=== PATIENT | female | born 1965 | race Caucasian/White ===

== ENCOUNTER 2022-10-19 09:12 | Day surgery (SDC) | payer OTHER, MEDICAID, SELFPAY ==
[2022-10-15 12:55] VITALS: BMI 24.1
[2022-10-19] VITALS (7 sets, daily range): BP systolic 102–125; BP diastolic 53–62; PULSE 86–104; RESP 12–15; TEMP 36.1–36.9; O2SAT 93–100; BMI 22.2
--- NOTE | 2022-10-19 07:34 | P.HP_ITS ---
History of Present Illness History of Present Illness Chief complaint: Left foot pain Narrative: 56 year old female reports painful left foot. Patient would like surgery for her left tailor's bunion. Patient had the right side corrected about 10 years ago. Patient started to have severe discomfort in the last 7-9 months, and the area had became more swollen. The pain is present at rest but worsens with ambulation. [facility] Medical History (Updated 10/14/22 @ 07:45 by Duncan Redd RN) Bunion of left foot Social History household members: spouse Smoking Status: Never smoker alcohol intake: current Meds Home Medications and Allergies Home Medications Medication Instructions Recorded Confirmed Type atorvastatin 20 mg tablet 20 mg PO DAILY 10/15/22 10/15/22 History duloxetine 60 mg capsule,delayed 60 mg PO DAILY 10/15/22 10/15/22 History release famotidine 20 mg tablet 20 mg PO BID 10/15/22 10/15/22 History fesoterodine 4 mg tablet,extended 4 mg PO DAILY 10/15/22 10/15/22 History release 24 hr levothyroxine 50 mcg tablet 50 mcg PO DAILY 10/15/22 10/15/22 History lisinopril 2.5 mg tablet 2.5 mg PO DAILY 10/15/22 10/15/22 History metoprolol succinate 25 mg 12.5 mg PO DAILY 10/15/22 10/15/22 History tablet,extended release 24 hr morphine 30 mg tablet,extended 30 mg PO Q12H 10/15/22 10/15/22 History release Allergies Allergy/AdvReac Type Severity Reaction Status Date / Time No Known Drug Allergies Allergy Verified 10/15/22 12:59 Review of Systems Review of Systems Narrative: Negative except in HPI. Exam Narrative Exam Narrative: Left foot: Tone, temperature, and turgor of skin within normal limits. stable cicatrix left lateral leg. NV intact. Severe lateral deviation of met 5 and medial deviation of toe 5. mild hallux abducto valgus, underriding toe 2. Pain on palpation to plantar and lateral distal met 5. Partially compensated forefoot varus. Assessment & Plan Assessment & Plan narrative: Recommended patient to take vitamind D and calcium supplements, clean foot with Hibiclens night before surgery, and obtain cast bag, knee scooter, and other supplies necessary for post-op period. Surgical plan is for left foot tailor's bunion and possible hammertoe correction. Risks and benefits of the procedure discussed with all questions answered to patient's satisfaction. Reviewed potential complications that may include but not limited to the following: DVT, failure to resolve all symptoms, infection, nerve injury, bleeding, recurrence, or wound. Patient elected to proceed with no guarantees made. Patient verbalized understanding and agreed with plan.
[2022-10-19] MEDS: LACTATED RINGERS 1,000 ML 42 ML IV (11:34)
[2022-10-19] MEDS: ACETAMINOPHEN 325 MG TABLET 650 MG PO (11:35)
[2022-10-19] MEDS: FAMOTIDINE 20 MG/2 ML VIAL IV (12:26)
--- NOTE | 2022-10-19 12:29 | SUR.PREOP ---
Patient reported 3-4/10 left foot pain, declined pain medication.
--- NOTE | 2022-10-19 13:31 | SUR.OPER ---
Supine on padded OR bed, head on pillow, arms secured on padded arm boards at <90 degrees abduction, legs uncrossed, safety belt at thigh, tape over blanket over lower legs.
[2022-10-19] MEDS: CEFAZOLIN 2 GM/100 ML PREMIX 100 ML IV (13:55)
[2022-10-19] MEDS: LIDOCAINE 1% 20 ML INJ (14:19)
[2022-10-19] MEDS: BUPIVACAINE 0.25% (PF) VIAL 30 ML INJ (15:28)
--- NOTE | 2022-10-21 07:25 | PM.OP.1 ---
Operative Date/Time/Diagnoses Date of procedure: 10/19/22 Pre-op diagnosis: 1. Left foot bunionette. Procedure & Clinicians Procedure: 1. Left foot bunionette correction with osteotomy. Same procedure as scheduled: Yes Indications: Painful left foot. Surgeon: Neil Hillman Click Yes if Unassisted: No Anesthesia Type: Sedation Operative Notes Findings: Degenerative changes and rigid deformity. Closure Type: primary Prosthetic devices, grafts, tissues, transplants, or devices: 2.0 mm, 12 mm and 14 mm, cannulated headless screws. Estimated Blood Loss (mL): 5 Blood products transfused: none Tourniquet time (min): 75 Procedure in detail: The patient was transported to the operating room and placed on the operating table in the supine position with a safety strap across her lap. Copious amounts of cast padding were placed around the left ankle followed by 18 inch tourniquet. A total of 9 cc of 1% lidocaine plain was injected to the foot, which was then prepped and draped in the usual sterile fashion followed by official timeout with the surgical team all in agreement. The foot was elevated to the operating table and exsanguinated with an Esmarch bandage. The pneumatic ankle tourniquet was inflated to 250 mmHg. The foot was lowered to the operating field. Attention was directed to the tailor's bunion deformity on the left foot. An approximately 6 cm dorsal medial incision was created over the fifth ray. The incision was then deepened with a #15 blade. All vessels encountered were ligated with hemostasis. The skin and subcutaneous tissue were from the capsule medially, which was then sharply reflected off the fifth metatarsal. There was noted to be a prominent bony eminence to the plantar and lateral aspect of fifth metatarsal head, which was sharply removed using sagittal saw. The periosteum was reflected off of fifth metatarsal head and shaft. A sagittal was then used to create a chevron type osteotomy. The capital fragment was freed and translated medially by 3mm. One 2.0 x 12 mm headless and one 2.0 x 14 mm headless screw were inserted over guide-wire using proper fixation technique. Construct was verified on fluoroscopy. Excess bone was shaved off using sagittal saw and bone rasp. The capsule was closed with 3-0 vicryl. The procedure site was then closed in layers using 4-0 vicryl and 3-0 nylon. The foot was cleansed and dried. It was dressed with iodine soaked Xeroform, gauze, Kerlix, ABD pad, and Hugh bandage. The limb was placed in a CAM walker. Post-operative Condition: stable Disposition: same day surgery Plan for aftercare: NWB to the left lower extremity. Keep dressing clean, dry, and intact. Take pain medications and follow-up as directed.
== END 2022-10-19 16:25 | disposition home or self-care (01) ==
PROVIDERS: Referring Provider Podiatrist Foot & Ankle Surgery; Visit Provider Podiatrist Foot & Ankle Surgery
PROC: 0QBP0ZZ Excision of Left Metatarsal, Open Approach (ICD-10-PCS; CPT 28292; principal; 2022-10-19 13:45)
DX: M21.622 Bunionette of left foot (principal)
CPT/HCPCS: 28308; J0690; J1100; J2250; J2405; J2704; J3010

== ENCOUNTER 2023-03-01 05:54 | Day surgery (SDC) | payer OTHER, MEDICAID, SELFPAY ==
[2023-02-23 14:58] VITALS: BMI 24.1
--- NOTE | 2023-02-28 22:34 | PM.HP.1 ---
History of Present Illness History of Present Illness [place] [facility] [place]ative: 57 year [place] female reports for left ankle hardware pain. Patient states the constant irritation from the screws protruding outward against the skin, which is affecting her daily activities and sleep. Patient would like to have them removed at this time. Patient could also feel the row of screws on the outer side of the left leg, but they do not bother her. Patient still has some swelling to the left forefoot. Patient denies recent changes in medical history. Patient denies n/v/f/c/sob/cp. [facility] Medical History (Updated 02/23/23 @ 15:15 by Sherrill Stephen RN) Depression Overactive bladder Orthostatic hypotension HFrEF (heart failure with reduced ejection fraction) Nonrheumatic aortic (valve) insufficiency Cardiomyopathy (2008) Non-Hodgkin lymphoma CURLY on CPAP HLD (hyperlipidemia) Bunion of left foot Surgical History (Updated 02/23/23 @ 15:15 by Sherrill Stephen RN) Hx of tubal ligation History of arthroscopy of knee History of hysterectomy History of lumbar laminectomy History of bunionectomy of right great toe (~2012) History of surgery (10/19/22) Social History household members: spouse Smoking Status: Never smoker alcohol intake: current Meds Home Medications and Allergies Home Medications Medication Instructions Recorded Confirmed Type atorvastatin 20 mg tablet 20 mg PO DAILY 10/15/22 10/19/22 History duloxetine 60 mg capsule,delayed 60 mg PO DAILY 10/15/22 10/19/22 History release famotidine 20 mg tablet 20 mg PO BID 10/15/22 10/19/22 History fesoterodine 4 mg tablet,extended 4 mg PO DAILY 10/15/22 10/19/22 History release 24 hr levothyroxine 50 mcg tablet 50 mcg PO DAILY 10/15/22 10/19/22 History lisinopril 2.5 mg tablet 2.5 mg PO DAILY 10/15/22 10/19/22 History metoprolol succinate 25 mg 12.5 mg PO DAILY 10/15/22 10/19/22 History tablet,extended release 24 hr morphine 30 mg tablet,extended 30 mg PO Q12H 10/15/22 10/19/22 History release Allergies Allergy/AdvReac Type Severity Reaction Status Date / Time codeine AdvReac Nausea/vomi Verified 02/23/23 15:12 ting methocarbamol AdvReac Vomiting Verified 02/23/23 15:12 topiramate AdvReac [place] Verified 02/23/23 15:12 really funny Review of Systems Review of Systems Narrative: Negative except as mentioned in HPI. Exam Skin Other: Palpable hardware to left medial malleolus and along left fibula. Tone, temperature, and turgor of skin within normal limits. Stable cicatrices to left ankle and foot. Extrem Other: Mild pain on palpation to left medial malleolus without guarding. No pain on palpation along left fibula. Assessment & Plan Assessment & Plan narrative: 1. Pain due to internal orthopedic at left ankle (medial malleolus), subsequent encounter. Risks and benefits of the procedure discussed with all questions answered to patient's satisfaction. Reviewed potential complications that may include but not limited to the following: DVT, failure to resolve all symptoms, infection, nerve injury, bleeding, recurrence, or wound. Reviewed aftercare instructions. Patient elected to proceed with no guarantees made. Patient verbalized understanding and agreed with surgical plan for hardware removal of two screws at left medial malleolus.
[2023-03-01] VITALS (8 sets, daily range): BP systolic 101–121; BP diastolic 48–65; PULSE 8–101; RESP 10–28; TEMP 36.6–36.7; O2SAT 97–99; BMI 21.9
--- NOTE | 2023-03-01 | PATH_ITS ---
[facility] Accession Number: [id number] No. of containers..01 Tissue . 01 Material submitted: . ankle - LEFT ANKLE . 01 Clinical history: . FOREIGN BODY . 01 Diagnosis: Left Ankle Foreign Body, Removal: Surgical hardware. Gross description only. MRV 03/03/2023 1816 Local . 01 Electronically signed: . Colby Stephens MD, PhD, Pathologist NPI- [id number] . 01 Gross description: . The specimen is received without fixative, labeled with the patient's name, , and L ankle foreign body, consists of two silver screws, both measuring 3.6 cm in length by 0.3 cm in diameter with round heads and no inscriptions identified. No soft tissue is present. No sections are submitted. The specimen is for gross only evaluation. ([id number]) /MRV 03/02/2023 1255 Local . 01 Pathologist provided ICD-10: T84.84XD . 01 CPT . 302124 Specimen Comment: A courtesy copy of this report has been sent to [facility] Pathology Performed at: 01 [facility] [address] [place] [address], [place], [place] [id number] MD Mikal Das MD Phone: [phone]
--- NOTE | 2023-03-01 | DI.RAD.S_ITS ---
PROCEDURE: XR ANKLE LT MIN 3V INDICATIONS: Post-op, screw removal TECHNIQUE: 3 views of the ankle were acquired. COMPARISON: Left ankle radiographs 02/12/2020. FINDINGS: Bones: Interval removal of medial malleolar partially-threaded screws. Stable positioning of distal fibular fixation using plate and screw construct. Bony alignment is normal. No acute osseous abnormality. Ankle mortise is normally aligned and intact. Soft tissues: No tibiotalar joint effusion. Achilles tendon appears normal. IMPRESSION: Status post interval removal of medial malleolar fixation screws. Stable alignment of distal fibula fixation hardware without evidence of complication. No acute radiographic abnormality. Approved by: Marie Casillas M.D. on 03/01/2023 at 12:27
[2023-03-01] MEDS: LACTATED RINGERS 1,000 ML 100 ML IV (07:12)
--- NOTE | 2023-03-01 07:43 | SUR.PREOP ---
See new order for EKG per Dr Hook
--- NOTE | 2023-03-01 07:49 | P.HP_ITS ---
History of Present Illness History of Present Illness Chief complaint: [facility] [place] Narrative: 57 year old female reports for left ankle hardware pain. Patient states the constant irritation from the screws protruding outward against the skin, which is affecting her daily activities and sleep. Patient would like to have them removed at this time. Patient could also feel the row of screws on the outer side of the left leg, but they do not bother her. Patient still has some swelling to the left forefoot. Patient denies recent changes in medical history. Patient denies n/v/f/c/sob/cp. [facility] Medical History (Updated 02/23/23 @ 15:15 by Sherrill Stephen RN) Depression Overactive bladder Orthostatic hypotension HFrEF (heart failure with reduced ejection fraction) Nonrheumatic aortic (valve) insufficiency Cardiomyopathy (2008) Non-Hodgkin lymphoma CURLY on CPAP HLD (hyperlipidemia) Bunion of left foot Surgical History (Updated 02/23/23 @ 15:15 by Sherrill Stephen RN) Hx of tubal ligation History of arthroscopy of knee History of hysterectomy History of lumbar laminectomy History of bunionectomy of right great toe (~2012) History of surgery (10/19/22) Social History household members: spouse Smoking Status: Never smoker alcohol intake: current Meds Home Medications and Allergies Home Medications Medication Instructions Recorded Confirmed Type atorvastatin 20 mg tablet 20 mg PO DAILY 10/15/22 03/01/23 History duloxetine 60 mg capsule,delayed 60 mg PO DAILY 10/15/22 03/01/23 History release famotidine 20 mg tablet 20 mg PO BID 10/15/22 03/01/23 History fesoterodine 4 mg tablet,extended 4 mg PO DAILY 10/15/22 03/01/23 History release 24 hr levothyroxine 50 mcg tablet 50 mcg PO DAILY 10/15/22 03/01/23 History lisinopril 2.5 mg tablet 2.5 mg PO DAILY 10/15/22 03/01/23 History metoprolol succinate 25 mg 25 mg PO DAILY 10/15/22 03/01/23 History tablet,extended release 24 hr morphine 30 mg tablet,extended 30 mg PO Q12H 10/15/22 03/01/23 History release oxycodone-acetaminophen 5 mg-325 1 tab PO Q6H PRN post-op pain #28 02/28/23 Rx mg tablet (Percocet) tabs Allergies Allergy/AdvReac Type Severity Reaction Status Date / Time methocarbamol AdvReac Vomiting Verified 03/01/23 06:51 topiramate AdvReac [place] Verified 03/01/23 06:51 really funny Exam Vital Signs (past 8 hours): - 03/01/23 07:08 Temperature 97.9 F Pulse Rate 88 Respiratory Rate 17 Blood Pressure 101/59 L Pulse Oximetry 97 Oxygen Delivery Method Room Air Oxygen Delivery Method Room Air
--- NOTE | 2023-03-01 07:50 | P.HP_ITS ---
History of Present Illness History of Present Illness Chief complaint: [facility] [place] Narrative: No changes to H&P entered on 03/10/23. [facility] Medical History (Updated 02/23/23 @ 15:15 by Sherrill Stephen RN) Depression Overactive bladder Orthostatic hypotension HFrEF (heart failure with reduced ejection fraction) Nonrheumatic aortic (valve) insufficiency Cardiomyopathy (2008) Non-Hodgkin lymphoma CURLY on CPAP HLD (hyperlipidemia) Bunion of left foot Surgical History (Updated 02/23/23 @ 15:15 by Sherrill Stephen RN) Hx of tubal ligation History of arthroscopy of knee History of hysterectomy History of lumbar laminectomy History of bunionectomy of right great toe (~2012) History of surgery (10/19/22) Social History household members: spouse Smoking Status: Never smoker alcohol intake: current Meds Home Medications and Allergies Home Medications Medication Instructions Recorded Confirmed Type atorvastatin 20 mg tablet 20 mg PO DAILY 10/15/22 03/01/23 History duloxetine 60 mg capsule,delayed 60 mg PO DAILY 10/15/22 03/01/23 History release famotidine 20 mg tablet 20 mg PO BID 10/15/22 03/01/23 History fesoterodine 4 mg tablet,extended 4 mg PO DAILY 10/15/22 03/01/23 History release 24 hr levothyroxine 50 mcg tablet 50 mcg PO DAILY 10/15/22 03/01/23 History lisinopril 2.5 mg tablet 2.5 mg PO DAILY 10/15/22 03/01/23 History metoprolol succinate 25 mg 25 mg PO DAILY 10/15/22 03/01/23 History tablet,extended release 24 hr morphine 30 mg tablet,extended 30 mg PO Q12H 10/15/22 03/01/23 History release oxycodone-acetaminophen 5 mg-325 1 tab PO Q6H PRN post-op pain #28 02/28/23 Rx mg tablet (Percocet) tabs Allergies Allergy/AdvReac Type Severity Reaction Status Date / Time methocarbamol AdvReac Vom[place] Verified 03/01/23 06:51 topiramate AdvReac [place] Verified 03/01/23 06:51 really funny Exam Vital Signs (past 8 hours): - 03/01/23 07:08 Temperature 97.9 F Pulse Rate 88 Respiratory Rate 17 Blood Pressure 101/59 L Pulse Oximetry 97 Oxygen Delivery Method Room Air Oxygen Delivery Method Room Air
[2023-03-01] MEDS: CEFAZOLIN 2 GM/100 ML PREMIX 100 ML IV (08:16)
--- NOTE | 2023-03-01 08:27 | SUR.OPER ---
Supine on padded OR bed, head on pillow, arms secured on padded arm boards at <90 degrees abduction, legs uncrossed, safety belt at thigh, tape over blanket over non-operative leg, bump at operative thigh, stack of blankets supporting operative leg knee and lower leg.
[2023-03-01] MEDS: LIDOCAINE 1% 20 ML INJ (08:30)
--- NOTE | 2023-03-01 08:38 | SUR.OPER ---
Screw explanted from left ankle.
--- NOTE | 2023-03-01 12:03 | PM.OP.1 ---
Operative Date/Time/Diagnoses Pre-op diagnosis: 1. Left ankle hardware pain at medial malleolus Post-op diagnosis: same Procedure & Clinicians Procedure: 1. Left ankle hardware removal, medial malleolus. Same procedure as scheduled: Yes Indications: 1. Painful and prominent left ankle hardware. Surgeon: Neil Hillman Anesthesia Type: Sedation and Local Operative Notes Findings: 1. Prominent left ankle screws x 2 at medial malleolus. 2. Trace unknown soft tissue material in screw, likely secondary to foreign body reaction. Closure Type: primary Specimen(s): other (Screws x 2 and soft tissue material) Estimated Blood Loss (mL): 5 Tourniquet time (min): 17 Procedure in detail: The patient was identified and transported to the operating room via gurney and then transferred onto the operating table in supine position with a safety strap across. Moderate sedation was administered in the room. A left thigh tourniquet was applied over cast padding. The left lower limb was prepped in the usual sterile fashion, followed by official timeout with the surgical team all in agreement. Attention was directed to the left medial malleolus. 4 cc of 1% lidocaine plain was administered to the region. The left lower extremity was also exsanguinated with an Esmarch bandage, and tourniquet was inflated to 300 mmHg. A linear incision was made over previous cicatrix using # 15 scalpel. Dissection was carried from skin down to the bone. The periosteum was sharply reflected, and two medial malleolar screws were identified after freeing up the bony ingrowth with a bone curette. An approiately sized hexagon screw auto carrier driver was used to remove bone screws without incidence. Trace amount of unknown soft tissue material was discovered inside the cannulated portion of the anterior screw, which was likely benign foreign body reaction and sent to pathology and microbiology for definitive evaluation. No acute signs of infection or corrosion noted. Tourniquet was released at a total of 17 minutes. Hemostasis was achieved with pressure. The surgical site was irrigated copiously using saline. It was then closed in layers from deep to superficial using 3-0 and 4-0 vicryls and 3-0 and 4-0 nylons. Remaining 6 cc of 1% lidocaine plain was administered post-operatively. The incision site was washed and cleaned, followed by sterile dressing using iodine soaked Adaptic, gauze, Kerlix, abdominal pad, and elastic bandage. Patient tolerated the procedure without complication and was transferred to PACU hemodynamically stable. A CAM walker was dispensed, for limited WBAT. Post-op radiogrpah ordered. Keep dressing clean, dry, and intact. Elevate surgical limb above the heart. Take pain medications as directed. RTC as scheduled.
== END 2023-03-01 10:36 | disposition home or self-care (01) ==
PROVIDERS: Referring Provider Podiatrist Foot & Ankle Surgery; Visit Provider Podiatrist Foot & Ankle Surgery
PROC: (CPT 20680; principal; 2023-03-01 07:45)
DX: T84.84XA Pain due to internal orthopedic prosthetic devices, implants and grafts, initial encounter (principal); G47.33 Obstructive sleep apnea (adult) (pediatric); I50.89 Other heart failure; I35.1 Nonrheumatic aortic (valve) insufficiency; I95.1 Orthostatic hypotension
CPT/HCPCS: 20680; 73610; 87070; 87075; 87176; 87205; 93005; 93010; J0330; J0690; J1170; J2250; J2704; J3010